=== PATIENT | female | born 1930 | race Caucasian/White ===

== ENCOUNTER 2016-08-29 18:58 | Emergency (ER) | payer MEDICARE ==
[2016-08-29 20:17] VITALS: TEMP 98.5; BMI 28.5
[2016-08-29 20:39] LABS: AUTOMATED BASOPHIL 0.9 % (0-2); AUTOMATED EOSINOPHIL 9.5 % (0-5); AUTOMATED LYMPH 25.7 % (17-44); AUTOMATED MONOCYTE 8.5 % (3-10); AUTOMATED NEUTROPHIL 55.4 % (45-76); MPV 8.6 fL (7.4-10.4)
[2016-08-29 20:47] LABS: PARTIAL THROMB. TIME 20.8 SEC (22-35)
[2016-08-29 20:49] LABS: CALCIUM 9.3 MG/DL (8.4-10.2); CREATININE 1.2 MG/DL (0.52-1.04); TOTAL PROTEIN 7.2 G/DL (6.3-8.2)
--- NOTE | 2016-08-29 20:49 | DIRPT ---
CLINICAL DATA: Cough and congestion for several months. EXAM: CHEST 2 VIEW COMPARISON: 06/29/2015 chest radiograph. FINDINGS: Stable cardiomediastinal silhouette with top-normal heart size and moderate hiatal hernia. No pneumothorax. No pleural effusion. There is an exaggerated thoracic kyphosis with mildly hyperinflated lungs. There is new patchy opacity at the lateral right lung base. No pulmonary edema. IMPRESSION: 1. New patchy opacity at the lateral right lung base, suspicious for developing pneumonia. Recommend follow-up PA and lateral post treatment chest radiographs in 6-8 weeks. 2. Exaggerated thoracic kyphosis with hyperinflated lungs, suggesting COPD. 3. Moderate hiatal hernia. Electronically Signed By: Moris Wright M.D. On: 08/29/2016 20:47
--- NOTE | 2016-08-29 21:11 | EDPRACDOC ---
- General Information Chief Complaint: Flu-Like Symptoms Stated Complaint: SHOB HX COPD SENT FROM DOCTOR'S OFFICE Time Seen by Provider: 08/29/16 21:02 Information Source: Patient Mode Of Arrival: Car Home Medications: Home Medications Albuterol/Ipratropium Neb [Duoneb] 3 ml NEB Q2H PRN 11/13/14 Alprazolam [Xanax] 0.5 mg PO HS PRN 11/13/14 Fluticasone Propionate [Flonase] 1 spray CHAN BID 11/13/14 Losartan Potassium [Cozaar] 50 mg PO HS 11/13/14 Nebulizer [Erapid Nebulizer] 1 each MC UNK 11/13/14 Pantoprazole Sodium [Protonix] 40 mg PO BID 11/13/14 Clindamycin [Cleocin] 150 mg PO TID #30 capsule 06/30/15 Azithromycin 250 mg PO DAILY #4 tablet 08/29/16 Cefdinir 300 mg PO BID #14 capsule 08/29/16 Allergies/Adverse Reactions: Allergies Allergy/AdvReac Type Severity Reaction Status Date / Time codeine [Codeine] Allergy Unknown/See Verified 08/29/16 20:17 Comments ibuprofen Allergy Unknown/See Verified 08/29/16 20:17 Comments - History of Present Illness Onset: 4 months HPI: NASAL CONGESTION WITH POST NASAL DRIP WORSE AT NIGHT FOR 3 WEEKS. COUGH, PRODUCTIVE OF MUCUS. PT'S PCP TOLD PT TO COME TO ED FOR SOB. SOB WORSE FOR ABOUT 3 DAYS. - Treatment Prior to ED Arrival Reported Medications/Treatment [employer] Treatment BLS IV No ED Past Medical History - History Reviewed Yes Nurses notes reviewed and agree except as marked - Patient Medical History Cardiac History: Reports: Hypertension, Hypercholesterolemia Respiratory History: Reports: Asthma, COPD, Emphysema GI/ History: Reports: Gastroesophageal Reflux Psychological History: Denies: Depression Surgical History: Reports: Cholecystectomy - Social Medical History Smoking Status: Former smoker EDM Review of Systems - Review of Systems ROS Negative Except as Marked: Yes All systems reviewed and were negative except as marked Respiratory: Cough, Shortness of Breath Cardiovascular: No Symptoms Reported Gastrointestinal: No Symptoms Reported Genitourinary: No Symptoms Reported Neurological: No Symptoms Reported Musculoskeletal: No Symptoms Reported Integumentary: No Symptoms Reported - Physical Exam Constitutional: Alert (Awake), No apparent distress Oriented to: Time, Person, Place Last recorded Vital Signs: Last Vital Signs Temp 98.5 F 08/29/16 20:14 Pulse 114 08/29/16 20:14 Resp 20 08/29/16 20:14 BP 156/82 08/29/16 20:14 Pulse Ox 92 08/29/16 20:14 Oxygen Pulse Oxygen Saturation 92 O2 Device Room Air Oxygen Flow Rate Fraction of Inspired Oxygen ( FIO2) - HEENT Head: Normal ( normocephalic) Eye Exam: Normal (PERRL, EOMI, Sclera white) Oropharynx: Normal (Pharynx:Moist without exudate,Gums-no swelling) Nose: No Symptoms Reported (septum midline) Neck: Normal (FROM, trachea at midline) - Respiratory/Cardiovascular Respiratory: Normal - CTA (BBS clear to auscultation without adventitious sounds ) Cardiovascular: Normal (RRR without murmur, gallop or rub) - GI Auscultation: Normal (NABS) Palpation: Normal (Soft,No rebound or guarding, non distended) Tenderness: Non tender Grover's Sign: Negative - Musculoskeletal Back: Normal (Non-Tender) Extremities: Normal (Normal tone, Pulses 2+ No cyanosis or edema, FROM) - Integumentary Skin: Normal, Warm, Dry Lymphatics: Normal (no adenopathy) - Neurologic Memory Impaired: Normal Motor Function: Normal (Normal tone, Pulses 2+ No cyanosis or edema, FROM) Cranial Nerve: Normal (CN II-X11 intact sensation, strength 5/5) Cerebellar: Normal Mood Description: Normal Perception: Normal - Results 08/29/16 20:19 08/29/16 20:19 WBC 4.3 xk/uL (3.8-10.8) 08/29/16 20:19 RBC 3.81 xM/uL (4.20-5.40) L 08/29/16 20:19 Hgb 11.2 g/dL (12.0-16.0) L 08/29/16 20:19 Hct 34.2 % (36-47) L 08/29/16 20:19 MCV 90 fL (81-99) 08/29/16 20:19 MCH 29.4 pg (27-32) 08/29/16 20:19 MCHC 32.8 g/dl (33-36) L 08/29/16 20:19 RDW 15.1 % (11.5-14.5) H 08/29/16 20:19 Plt Count 157 xk/uL (130-400) 08/29/16 20:19 MPV 8.6 fL (7.4-10.4) 08/29/16 20:19 Neut % (Auto) 55.4 % (45-76) 08/29/16 20:19 Lymph % (Auto) 25.7 % (17-44) 08/29/16 20:19 [place] % (Auto) 8.5 % (3-10) 08/29/16 20:19 Eos % (Auto) 9.5 % (0-5) H 08/29/16 20:19 Baso % (Auto) 0.9 % (0-2) 08/29/16 20:19 Absolute Neuts (auto) 2.37 xk/uL (1.7-8.2) 08/29/16 20:19 Absolute Lymphs (auto) 1.08 xk/uL (0.65-4.75) 08/29/16 20:19 PT 10.7 SEC (9.2-11.2) 08/29/16 20:19 INR 1.0 08/29/16 20:19 APTT 20.8 SEC (22-35) L 08/29/16 20:19 Sodium 141 mEq/L (137-146) 08/29/16 20:19 Potassium 4.1 mEq/L (3.5-5.1) 08/29/16 20:19 Chloride 105 mEq/L (98-107) 08/29/16 20:19 Carbon Dioxide 28 mMOL/L (22-33) 08/29/16 20:19 Anion Gap 12 mEq/L (8-16) 08/29/16 20:19 BUN 21 MG/DL (7-17) H 08/29/16 20:19 Creatinine 1.20 MG/DL (0.52-1.04) H 08/29/16 20:19 Estimated GFR (MDRD) 42 mL/min (>=60) L 08/29/16 20:19 Glucose 113 MG/DL (70-99) H 08/29/16 20:19 Calculated Osmolality 275 MOs/Kg (270-290) 08/29/16 20:19 Calcium 9.3 MG/DL (8.4-10.2) 08/29/16 20:19 Corrected Calcium 10.0 MG/DL (8.4-10.2) 08/29/16 20:19 Total Bilirubin 0.4 MG/DL (0.2-1.3) 08/29/16 20:19 AST 26 IU/L (14-36) 08/29/16 20:19 ALT 30 IU/L (9-52) 08/29/16 20:19 Alkaline Phosphatase 75 IU/L (55-165) 08/29/16 20:19 Troponin I 0.03 ng/mL (<.04) 08/29/16 20:19 Met-A-Cgyrbpgjela Pept 1150 pg/mL (0-1800) 08/29/16 20:19 Total Protein 7.2 G/DL (6.3-8.2) 08/29/16 20:19 Albumin 3.3 G/DL (3.5-5.0) L 08/29/16 20:19 Lab Results 08/29/16 08/29/16 08/29/16 20:19 20:19 20:19 WBC 4.3 RBC 3.81 L Hgb 11.2 L Hct 34.2 L MCV 90 MCH 29.4 MCHC 32.8 L RDW 15.1 H Plt Count 157 MPV 8.6 Neut % (Auto) 55.4 Lymph % (Auto) 25.7 [place] % (Auto) 8.5 Eos % (Auto) 9.5 H Baso % (Auto) 0.9 Absolute Neuts (auto) 2.37 Absolute Lymphs (auto) 1.08 PT 10.7 INR 1.0 APTT 20.8 L Sodium 141 Potassium 4.1 Chloride 105 Carbon Dioxide 28 Anion Gap 12 BUN 21 H Creatinine 1.20 H Estimated GFR (MDRD) 42 L Glucose 113 H Calculated Osmolality 275 Calcium 9.3 Corrected Calcium 10.0 Total Bilirubin 0.4 AST 26 ALT 30 Alkaline Phosphatase 75 Troponin I 0.03 Vzq-E-Mmxazdowxci Pept 1150 Total Protein 7.2 Albumin 3.3 L Decision Time to Discharge: 21:18 - Departure Yes I personally saw and evaluated the patient. Disposition: Home Condition: Stable Final Diagnosis: Pneumonia Qualifiers: Pneumonia type: due to unspecified organism Laterality: right Lung location: lower lobe of lung Qualified Code(s): J18.1 - Lobar pneumonia, unspecified organism Instructions: Community Acquired Pneumonia (ED) Education/Counseling Given To: Patient Education/Counseling Given Regarding: Diagnosis, Treatment Referrals: Filiberto Coon MD [Primary Care Provider] - One Week Prescriptions: Azithromycin 250 mg PO DAILY #4 tablet Cefdinir 300 mg PO BID #14 capsule
[2016-08-29] MEDS ORDERED: ONDANSETRON HCL 4 MG ODT TAB PO ONE (21:15)
[2016-08-29] MEDS ORDERED: AZITHROMYCIN 250 MG TAB PO ONE (21:15)
[2016-08-29] MEDS ORDERED: CEFDINIR 300 MG CAP PO ONE (21:16)
[2016-08-29 22:17] VITALS: BP 192/99; PULSE 96
== END 2016-08-29 22:15 | disposition home or self-care (01) ==
LOC: ED 18:58
DX: J18.1 Lobar pneumonia, unspecified organism (principal)
CPT/HCPCS: 36415; 71020; 80053; 83880; 84484; 85025; 85610; 85730; 93005; 99283; A9270; J3490